=== PATIENT | female | born 1990 | race Caucasian/White ===

== ENCOUNTER 2017-07-17 11:09 | Emergency (ER) | payer BC, OTHER ==
--- NOTE | 2017-07-17 11:50 | EDM.PDOC ---
ED HPI GENERAL MEDICAL PROBLEM - General Chief Complaint: General Stated Complaint: MENTAL ISSUES Time Seen by Provider: 07/17/17 11:46 Source of Information: Reports: Patient, Family History Limitations: Reports: No Limitations - History of Present Illness INITIAL COMMENTS - FREE TEXT/NARRATIVE: History of present illness: [27-year-old female comes in with a complex mental health history. Patient has multiple diagnoses to include borderline personality, depression, schizophrenia , schizoaffective disorder, and some nature of a disassociative disorder. Patient has a history of hearing voices often they are low-level the background and other times they are shouting she feels very pressured and feels like she must comply with their instructions. Often they tell her to hurt herself or others. Patient comes in today concerned because she has on their instruction injure herself and they are now focusing on self harm. Patient is not as concerned about their instructions to hurt others as she has never felt compelled to follow through on those orders but she does feel that to silence them it is necessary to harm herself which is frightened her and she desires to seek help. Patient indicates she is on numerous psych meds list provided but she indicates that they don't seem to be effective anymore and feels that she needs to have her psychiatric medications reevaluated and adjusted. Patient indicates that she is disabled secondary to her mental health issues and she finds it very challenging to deal with the lack of control.] Review of systems: As per history of present illness and below otherwise all systems reviewed and negative. Past medical history: As per history of present illness and as reviewed below otherwise noncontributory. Surgical history: As per history of present illness and as reviewed below otherwise noncontributory. Social history: No reported history of drug or alcohol abuse. Family history: As per history of present illness and as reviewed below otherwise noncontributory. Physical exam: HEENT: Atraumatic, normocephalic, pupils reactive, negative for conjunctival pallor or scleral icterus, mucous membranes moist, throat clear, neck supple, nontender, trachea midline. Lungs: Clear to auscultation, breath sounds equal bilaterally, chest nontender. Heart: S1S2, regular, negative for clicks, rubs, or JVD. Abdomen: Soft, nondistended, nontender. Negative for masses or hepatosplenomegaly. Negative for costovertebral tenderness. Pelvis: Stable nontender. Genitourinary: Deferred. Rectal: Deferred. Extremities: Atraumatic, negative for cords or calf pain. Neurovascular unremarkable. Neuro: Awake, alert, oriented. Cranial nerves II through XII unremarkable. Cerebellum unremarkable. Motor and sensory unremarkable throughout. Exam nonfocal. Global assessment is benign save the subjective complaint as noted in history of present illness. Patient is lucid, clear spoken, speech is not tangential fragmented or disjointed in any way. Due to patient's history of suicidal attempt predicated on demands from the voices, patient is determined to be at risk for attempted suicide again by herself as well as myself. Patient admits that they wear her down and she is willing to do whatever they say to silence them. Patient indicates she also occasionally to her to harm others but she has never acted on the voices directions to harm others and so is lesser concerned about hurting anyone else and it is at this time that the voices turn on her and says she must kill herself because her noncompliance. Spoke with Camille Mercer in regards to transfer and admission Dr. Zhang accepted patient for inpatient psychiatric evaluation and treatment. Spoke with Dr. Jefferson in ED who also agreed to take patient is an ER to ER transfer Diagnostics: [EKG, UA, urine drug screen, hCG, EtOH, salicylate, acetaminophen, TSH, T3, magnesium, CBC, CMP] Therapeutics: [] Impression: [#1 uncontrolled schizophrenia] Plan: [Transfer to [facility] ] Definitive disposition and diagnosis as appropriate pending reevaluation and review of above. - Related Data Allergies Allergy/AdvReac Type Severity Reaction Status Date / Time acetaminophen [From Vicodin] Allergy Hives Verified 07/17/17 11:13 hydrocodone [From Vicodin] Allergy Hives Verified 07/17/17 11:13 Home Meds: Home Meds Dextroamphetamine/Amphetamine [Adderall 10 mg Tablet] 10 mg PO DAILY 07/17/17 [ History] Dextroamphetamine/Amphetamine [Adderall 5 mg Tablet] 5 mg PO DAILY 07/17/17 [ History] Escitalopram [Lexapro] 10 mg PO DAILY 07/17/17 [History] LORazepam [Ativan] 0.5 mg PO DAILY 07/17/17 [History] OLANZapine [ZyPREXA] 2.5 mg PO ONETIME 07/17/17 [History] busPIRone [Buspar] 15 mg PO BID 07/17/17 [History] lamoTRIgine [Lamictal] 200 mg PO DAILY 07/17/17 [History] risperiDONE [Risperdal] 3 mg PO BEDTIME 07/17/17 [History] Past Medical History HEENT History: Reports: None Cardiovascular History: Reports: None Respiratory History: Reports: None Gastrointestinal History: Reports: None Genitourinary History: Reports: None ROLL TENDER History: Reports: Fibroids Musculoskeletal History: Reports: None Neurological History: Reports: None Psychiatric History: Reports: Anxiety, Depression, OCD, PTSD, Schizophrenia, Other (See Below) Other Psychiatric History: Borderline personality Endocrine/Metabolic History: Reports: None Hematologic History: Reports: Anemia Oncologic (Cancer) History: Reports: None Dermatologic History: Reports: None - Infectious Disease History Infectious Disease History: Reports: Chicken Pox - Past Surgical History HEENT Surgical History: Reports: None Cardiovascular Surgical History: Reports: None GI Surgical History: Reports: None Female Surgical History: Reports: None Musculoskeletal Surgical History: Reports: None Oncologic Surgical History: Reports: Bone Marrow Transplant Social & Family History - Family History Family Medical History: Noncontributory - Tobacco Use Smoking Status *Q: Never Smoker - Caffeine Use Caffeine Use: Reports: Tea - Recreational Drug Use Recreational Drug Use: No ED ROS GENERAL - Review of Systems Review Of Systems: See Below (See history of present illness) ED EXAM, GENERAL - Physical Exam Exam: See Below (History of present illness) Course - Vital Signs Last Recorded V/S: Last Vital Signs Temp 36.6 C 07/17/17 11:13 Pulse 113 H 07/17/17 11:13 Resp 18 07/17/17 11:13 BP 144/95 H 07/17/17 11:13 Pulse Ox 97 07/17/17 11:13 - Orders/Labs/Meds Orders: Active Orders 24 hr Category Date Time Status ACETAMINOPHEN [CHEM] Routine Lab 07/17/17 12:06 Received ACETAMINOPHEN [CHEM] Stat Lab 07/17/17 11:50 Ordered CBC WITH AUTO DIFF [HEME] Stat Lab 07/17/17 11:50 Ordered COMPREHENSIVE METABOLIC PN,CMP [CHEM] Stat Lab 07/17/17 11:50 Ordered DRUG SCREEN, URINE [URCHEM] Stat Lab 07/17/17 12:35 Ordered ETHANOL BLOOD MEDICAL [CHEM] Stat Lab 07/17/17 12:04 Results SALICYLATE [CHEM] Stat Lab 07/17/17 12:04 Results TSH [CHEM] Stat Lab 07/17/17 12:04 Results Labs: Laboratory Tests 07/17/17 07/17/17 07/17/17 Range/Units 12:02 12:02 12:04 Urine Color YELLOW Urine Appearance CLEAR Urine pH 7.5 (5.0-8.0) Ur Specific [place] 1.010 (1.001-1.035) Urine Protein NEGATIVE (NEGATIVE) mg/dL Urine Glucose (UA) NEGATIVE (NEGATIVE) mg/dL Urine Ketones NEGATIVE (NEGATIVE) mg/dL Urine Occult Blood NEGATIVE (NEGATIVE) Urine Nitrite NEGATIVE (NEGATIVE) Urine Bilirubin NEGATIVE (NEGATIVE) Urine Urobilinogen 0.2 (<2.0) EU/dL Ur Leukocyte Esterase NEGATIVE (NEGATIVE) Urine RBC NONE SEEN (0-2/HPF) Urine WBC 0-1 (0-5/HPF) Ur Epithelial Cells RARE (NONE-FEW) Amorphous Sediment RARE (NEGATIVE) Urine Bacteria FEW (NEGATIVE) Urine HCG, Qual NEGATIVE (NEGATIVE) Salicylates < 5.0 (0-20) mg/dL Ethyl Alcohol < 10.0 mg/dL Meds: Medications Discontinued Medications Generic Name Dose Route Start Last Admin Trade Name Jono PRN Reason Stop Dose Admin Ibuprofen 800 mg 07/17/17 13:25 Motrin PO 07/17/17 13:26 ONETIME ONE Departure - Departure Time of Disposition: 13:35 Disposition: DC/Tfer to Psych Hosp/Unit [facility] Condition: Good Clinical Impression: Schizophrenia, Suicidal ideation - Discharge Information Referrals: PCP,None [Primary Care Provider] - Forms: ED Department Discharge - My Orders Last 24 Hours: My Active Orders 07/17/17 11:50 ACETAMINOPHEN [CHEM] Stat CBC WITH AUTO DIFF [HEME] Stat COMPREHENSIVE METABOLIC PN,CMP [CHEM] Stat 07/17/17 12:35 DRUG SCREEN, URINE [URCHEM] Stat - Assessment/Plan Last 24 Hours: My Active Orders 07/17/17 11:50 ACETAMINOPHEN [CHEM] Stat CBC WITH AUTO DIFF [HEME] Stat COMPREHENSIVE METABOLIC PN,CMP [CHEM] Stat 07/17/17 12:35 DRUG SCREEN, URINE [URCHEM] Stat
[2017-07-17] MEDS ORDERED: Ibuprofen 800 MG Tab PO ONE (13:25)
[2017-07-17 13:49] VITALS: BP 149/98
[2017-07-17 14:24] LABS: CHLORIDE,CL 103 mmol/L (98-110); SODIUM,NA 139 mmol/L (136-146)
== END 2017-07-17 15:03 ==
LOC: MW.ED 11:09
DX: F20.9 Schizophrenia, unspecified (principal); R45.851 Suicidal ideations; F41.9 Anxiety disorder, unspecified; F32.9 Major depressive disorder, single episode, unspecified; Z88.6 Allergy status to analgesic agent; Z79.899 Other long term (current) drug therapy
CPT/HCPCS: 36415; 80053; 80305; 81001; 81025; 84443; 99285; A9270; G0480; 99283